=== PATIENT | male | born 1960 | race Hispanic/Latino ===

== ENCOUNTER 2018-11-04 22:22 | Inpatient (IN) | payer OTHER | END 2018-11-23 12:19 | LOC: EDH 22:22 → 4AH 11-19 22:48 → 2AH 11-14 22:27 → EDHIP 11-05 00:45 → 2CH 11-05 20:37 | PROC: 5A1955Z Respiratory Ventilation, Greater than 96 Consecutive Hours (ICD-10-PCS; principal; ~2018-11-04) | DX: A41.9 Sepsis, unspecified organism (principal); J18.9 Pneumonia, unspecified organism; J18.1 Lobar pneumonia, unspecified organism; J96.01 Acute respiratory failure with hypoxia; K72.00 Acute and subacute hepatic failure without coma; J80 Acute respiratory distress syndrome; R65.21 Severe sepsis with septic shock; C94.6 Myelodysplastic disease, not elsewhere classified; N17.9 Acute kidney failure, unspecified; R17 Unspecified jaundice; E87.1 Hypo-osmolality and hyponatremia ==